=== PATIENT | female | born 1965 | race Caucasian/White ===

== ENCOUNTER 2019-02-05 07:01 | Emergency (ER) | payer BC ==
[2019-02-05 07:20] VITALS: BP 170/100
--- NOTE | 2019-02-05 07:26 | UC ---
Respiratory Complaint HPI - HPI Summary HPI Summary: The patient is a 53-year-old female with a 10 day history of nasal congestion, postnasal drip, facial pressure and pain, and sore throat. She has had no fever, but she has had chills. She has a rare cough. It is nonproductive. She has no chest pain or shortness of breath. - History of Current Complaint Chief Complaint: UCRespiratory Stated Complaint: SORE THROAT RESP ISSUE Time Seen by Provider: 02/05/19 07:11 Hx Obtained From: Patient Onset/Duration: Gradual Onset, Lasting Days Timing: Constant Severity Initially: Mild Severity Currently: Moderate Pain Intensity: 6 Pain Scale Used: 0-10 Numeric Character: Cough: Nonproductive Aggravating Factors: Nothing Alleviating Factors: Nothing Associated Signs And Symptoms: Positive: Chills, Nasal Congestion, Sinus Discomfort - Allergies/Home Medications Allergies/Adverse Reactions: Allergies Allergy/AdvReac Type Severity Reaction Status Date / Time No Known Allergies Allergy Verified 02/05/19 07:15 Home Medications: Home Medications Triamterene [Dyrenium] 100 mg PO 02/05/19 [History] PMH/Surg Hx/FS Hx/Imm Hx Previously Healthy: Yes Cardiovascular History: Hypertension - Surgical History Surgical History: Yes Surgery Procedure, Year, and Place: shoulder tear repair - Family History Known Family History: Positive: Cardiac Disease, Hypertension, Diabetes - Social History Alcohol Use: Occasionally Substance Use Type: Marijuana Substance Use Comment - Amount & Last Used: once a month Smoking Status (MU): Never Smoked Tobacco Review of Systems All Other Systems Reviewed And Are Negative: Yes Constitutional: Positive: Chills, Fatigue Skin: Positive: Negative Eyes: Positive: Negative ENT: Positive: Sore Throat, Nasal Discharge, Sinus Congestion, Sinus Pain/ Tenderness Respiratory: Positive: Cough - rare Cardiovascular: Positive: Negative Gastrointestinal: Positive: Negative Genitourinary: Positive: Negative Motor: Positive: Negative Neurovascular: Positive: Negative Musculoskeletal: Positive: Negative Neurological: Positive: Negative Psychological: Positive: Negative Physical Exam Triage Information Reviewed: Yes Appearance: Well-Appearing, No Pain Distress, Well-Nourished Vital Signs: Initial Vital Signs Temp 98.6 F 02/05/19 07:12 Pulse 76 02/05/19 07:12 Resp 18 02/05/19 07:12 BP 170/100 02/05/19 07:12 Pulse Ox 98 02/05/19 07:12 Vital Signs Reviewed: Yes Eyes: Positive: Conjunctiva Clear ENT: Positive: Hearing grossly normal, Nasal congestion, Nasal drainage, TMs normal, Sinus tenderness, Uvula midline. Negative: Pharyngeal erythema, Tonsillar swelling, Tonsillar exudate, Trismus, Muffled voice, Hoarse voice, Dental tenderness Dental Exam: Normal Neck: Positive: Supple, Nontender, No Lymphadenopathy Respiratory: Positive: Lungs clear, Normal breath sounds, No respiratory distress, No accessory muscle use Cardiovascular: Positive: RRR, No Murmur Musculoskeletal: Positive: ROM Intact, No Edema Neurological: Positive: Alert Psychological Exam: Normal Skin Exam: Normal Respiratory Course/Dx - Differential Dx/Diagnosis Provider Diagnosis: Acute sinusitis Discharge - Sign-Out/Discharge Documenting (check all that apply): Patient Departure All imaging exams completed and their final reports reviewed: No Studies - Discharge Plan Condition: Stable Disposition: HOME Prescriptions: Amoxicillin PO (*) [Amoxicillin 875 MG (*)] 875 mg PO BID #14 tab Patient Education Materials: Sinusitis (ED) Referrals: Shannon Houston DO [Primary Care Provider] - 2 Weeks ( 2-12 weeks for BP recheck) Additional Instructions: recheck in about 5 days if not better sooner for new or worsening symptoms saline nasal spray 2 sprays each nostril twice daily - Billing Disposition and Condition Condition: STABLE Disposition: Home
== END 2019-02-05 07:36 | disposition home or self-care (01) ==
LOC: UCEAST 07:01
DX: J01.90 Acute sinusitis, unspecified (principal); I10 Essential (primary) hypertension
CPT/HCPCS: 99212; G0463

== ENCOUNTER 2019-02-16 07:53 | Emergency (ER) | payer BC ==
[2019-02-16 08:00] VITALS: BP 169/80
--- NOTE | 2019-02-16 08:53 | UC ---
Throat Pain/Nasal Pérez HPI - HPI Summary HPI Summary: 53-year-old female presents with complaints of nasal congestion, sinus pain, sore throat, and occasional nonproductive cough. She was seen at this facility on 02/05/2019 for similar symptoms and treated with a 7 day course of amoxicillin 875 mg twice a day for an acute sinusitis. She states that her symptoms improved however within 2 days of stopping the antibiotics symptoms returned and have been slowly worsening. States she has been using [id number] cold and sinus medications with little relief in symptoms. Denies fever, chills , ear pain, dysphagia, chest pain, shortness of breath, abdominal pain, nausea, vomiting, or diarrhea. - History of Current Complaint Chief Complaint: UCRespiratory Stated Complaint: SINUS ISSUE Time Seen by Provider: 02/16/19 08:48 Hx Obtained From: Patient Pain Intensity: 6 - Allergies/Home Medications Allergies/Adverse Reactions: Allergies Allergy/AdvReac Type Severity Reaction Status Date / Time No Known Allergies Allergy Verified 02/16/19 08:01 PMH/Surg Hx/FS Hx/Imm Hx Previously Healthy: Yes - Denies significant PMH - Surgical History Surgical History: Yes Surgery Procedure, Year, and Place: shoulder tear repair - Family History Known Family History: Positive: Cardiac Disease, Hypertension, Diabetes - Social History Occupation: Employed Full-time Lives: With Family Alcohol Use: Occasionally Substance Use Type: Marijuana Substance Use Comment - Amount & Last Used: once a month Smoking Status (MU): Never Smoked Tobacco Review of Systems All Other Systems Reviewed And Are Negative: Yes Constitutional: Positive: Fatigue. Negative: Fever, Chills Eyes: Negative: Drainage, Eye Redness ENT: Positive: Sore Throat, Nasal Discharge, Sinus Congestion, Sinus Pain/ Tenderness. Negative: Ear Ache Respiratory: Positive: Cough. Negative: Shortness Of Breath Cardiovascular: Negative: Palpitations, Chest Pain Gastrointestinal: Negative: Abdominal Pain, Vomiting, Diarrhea, Nausea Genitourinary: Positive: Negative Musculoskeletal: Positive: Negative Neurological: Positive: Negative Is Patient Immunocompromised?: No Physical Exam - Summary Physical Exam Summary: GENERAL APPEARANCE: Well developed, well nourished, alert and cooperative, and appears to be in no acute distress. EYES: Conjunctiva clear. No drainage. EARS: External auditory canals and tympanic membranes clear, hearing grossly intact. NOSE: Mild-moderate nasal congestion with mucosal erythema and edema. No nasal discharge. THROAT: Mild pharyngeal erythema with cobblestoning. No tonsilar inflammation, swelling, exudate, or lesions. Uvula midline. NECK: Neck supple, non-tender without lymphadenopathy. CARDIAC: Normal S1 and S2. No S3, S4 or murmurs. Rhythm is regular. There is no peripheral edema, cyanosis or pallor. Extremities are warm and well perfused. Capillary refill is less than 2 seconds. Peripheral pulses intact. LUNGS: Clear to auscultation without rales, rhonchi, wheezing or diminished breath sounds. ABDOMEN: Positive bowel sounds. Soft, nondistended, nontender. No guarding or rebound. No masses or hepatosplenomegally. MUSKULOSKELETAL: ROM intact to all extremities. No joint erythema or tenderness. Normal muscular development. Normal gait. SKIN: Skin normal color, texture and turgor with no lesions or eruptions. Triage Information Reviewed: Yes Vital Signs: Initial Vital Signs Temp 97 F 02/16/19 07:58 Pulse 77 02/16/19 07:58 Resp 18 02/16/19 07:58 BP 169/80 02/16/19 07:58 Pulse Ox 99 02/16/19 07:58 Vital Signs Reviewed: Yes Throat Pain/Nasal Course/Dx - Course Course Of Treatment: 53-year-old female presents with complaints of nasal congestion, sinus pain, sore throat, and occasional nonproductive cough. She was seen at this facility on 02/05/2019 for similar symptoms and treated with a 7 day course of amoxicillin 875 mg twice a day for an acute sinusitis. She states that her symptoms improved however within 2 days of stopping the antibiotics symptoms returned and have been slowly worsening. States she has been using [id number] cold and sinus medications with little relief in symptoms. Denies fever, chills , ear pain, dysphagia, chest pain, shortness of breath, abdominal pain, nausea, vomiting, or diarrhea. Afebrile. Hypertensive otherwise vital signs stable. Exam was remarkable for some mild to moderate nasal congestion with mucosal erythema and edema and mild pharyngeal erythema with cobblestoning without tonsillar swelling or exudate. Considering that she just finished a course of antibiotics and she had a return of symptoms within a fairly short period of time will treat her with a second course of antibiotics for her sinusitis. I'm going to should switch her to Augmentin 875 mg twice a day 10 days to provide slightly better coverage for beta-lactamase resistant organisms. I'm also recommending saline rinses and will provide her with a prescription for fluticasone nasal spray 2 sprays each nostril once daily to help treat her symptoms. She is to follow-up with her primary care provider within 5 days if symptoms do not improve. Anticipatory guidance and warning symptoms were reviewed with the patient. Verbalizes understanding and agrees with plan of care. - Differential Dx/Diagnosis Differential Diagnosis/HQI/PQRI: Sinusitis, URI Provider Diagnosis: Acute sinusitis, Elevated blood pressure reading Discharge - Sign-Out/Discharge Documenting (check all that apply): Patient Departure All imaging exams completed and their final reports reviewed: No Studies - Discharge Plan Condition: Stable Disposition: HOME Prescriptions: Amoxicillin/Clavulanate TAB* [Augmentin TAB 875*] 875 mg PO BID #20 tab Fluticasone NASAL SPRAY 50MCG* [Flonase NASAL SPRAY 50MCG*] 2 spray BOTH NARES DAILY #1 btl Patient Education Materials: Sinusitis (ED) Referrals: Shannon Houston DO [Primary Care Provider] - 5 Days Additional Instructions: Your history and exam are consistent with a sinus infection. Considering you just completed a course of antibiotics we will treat you with a second course to see if we can clear the infection. Start Augmentin 875 mg 1 tab twice a day for 10 days. Take with food to avoid upset stomach. Be sure to finish the entire course even if feeling better. Drink plenty of fluids to avoid dehydration especially if you are running any fever. Use a saline rinse kit such as Neti Pot or NeilMed at least twice a day to help thin secretions and promote drainage of the sinuses. Use fluticasone (Flonase) nasal spray 2 sprays each nostril once daily. Use an over the counter decongestant such as Sudafed according to directions to help with congestion. Take over the counter acetaminophen (Tylenol) or ibuprofen (Advil, Motrin) according to directions as needed for pain or fever. Follow up with your primary care provider in 5 days if symptoms persist. Your blood pressure was elevated in the clinic today. It is recommended that you follow up with you primary care provider within 4 weeks to have this rechecked. Seek immediate medical attention in the emergency room if you have fever greater than 100.5 F despite taking acetaminophen or ibuprofen, have chest pain , difficulty breathing, are unable to swallow, or have any worsening of symptoms. - Billing Disposition and Condition Condition: STABLE Disposition: Home
== END 2019-02-16 09:05 | disposition home or self-care (01) ==
LOC: UCEAST 07:53
DX: J01.90 Acute sinusitis, unspecified (principal); R53.83 Other fatigue; J02.9 Acute pharyngitis, unspecified; R05 Cough; R03.0 Elevated blood-pressure reading, without diagnosis of hypertension
CPT/HCPCS: 99212; G0463